=== PATIENT | female | born 1995 | race Caucasian/White ===

== ENCOUNTER 2022-10-15 16:47 | Emergency (ER) | payer OTHER ==
[2022-10-15] MEDS ORDERED: Ondansetron ODT 4 MG TAB ONE (18:33)
[2022-10-15 18:42] LABS: #Basophils 0.1 thou/uL (0.0-0.2); #Eosinphils 0.1 thou/uL (0.0-0.7); #Lymphocytes 1.4 thou/uL (1.20-3.40); #Monocytes 0.3 thou/uL (0.11-0.59); #Neutrophils 7.8 thou/uL (1.40-6.50); %Basophils 0.7 % (0.0-1.0); %Eosinophils 0.8 % (0.0-10.0); %Lymphocytes 14.8 % (21.0-51.0); %Monocytes 3.1 % (0.0-10.0); %Neutrophils 80.6 % (42.0-75.0); Hemoglobin 14.4 g/dL (12.0-16.0); Mean Corpuscular Hemoglobin 27.4 pg (27.0-31.0); Mean Corpuscular Volume 85.8 fl (78.0-98.0); Platelet Count 288 10x3/uL (130-400); RBC Distribution Width 12.3 % (11.5-14.5); Red Blood Cell (RBC) Count 5.24 mill/uL (4.20-5.40); White Blood Cell (WBC) Count 9.6 10x3/uL (4.8-10.8)
[2022-10-15 18:53] LABS: BHCG - Serum Negative (NEGATIVE); Pregs Control Background? CLEAR/WHITE (CLR/WHITE); Pregs Control Bar Appear? YES (CONTROL BAR)
[2022-10-15 18:59] LABS: ALT (SGPT) 32 U/L (8-55); AST (SGOT) 20 U/L (5-34); Albumin 4.1 g/dL (3.5-5.0); Alkaline Phosphatase 82 U/L (40-110); Anion Gap 13 mmol/L (10-20); BUN (Urea Nitrogen) 11 mg/dL (7.0-18.7); Bilirubin, Total 0.5 mg/dL (0.2-1.2); Calc. Creatinine Clearance 0 mL/min (70-130); Calcium 9.1 mg/dL (7.8-10.44); Carbon Dioxide 22 mmol/L (22-29); Chloride 109 mmol/L (98-107); Estimated GFR 102; Globulin 2.9 g/dL (2.4-3.5); Glucose 102 mg/dL (70-105); Lipase 15 U/L (8-78); Magnesium 1.8 mg/dL (1.6-2.6); Sodium 140 mmol/L (136-145)
== END 2022-10-15 19:23 | disposition home or self-care (01) ==
LOC: MADERS 16:47
DX: A08.4 Viral intestinal infection, unspecified (principal)
CPT/HCPCS: 36415; 80053; 83690; 83735; 84703; 85025; 99284; Q0162

== ENCOUNTER 2023-02-12 01:00 | Emergency (ER) | payer OTHER, SELFPAY ==
[2023-02-12] MEDS ORDERED: Prochlorperazine 10 MG/2 ML VIAL ONE (01:59)
[2023-02-12] MEDS ORDERED: Morphine 4 MG/ML VIAL ONE ×2 (02:00→03:38)
[2023-02-12] MEDS ORDERED: Morphine 2 MG/ML VIAL ONE (02:00)
[2023-02-12 02:27] LABS: #Basophils 0.1 thou/uL (0.0-0.2); #Eosinphils 0.1 thou/uL (0.0-0.7); #Lymphocytes 4.2 thou/uL (1.20-3.40); #Monocytes 0.6 thou/uL (0.11-0.59); %Basophils 0.8 % (0.0-1.0); %Eosinophils 0.6 % (0.0-10.0); %Neutrophils 64.7 % (42.0-75.0); Hematocrit 47.2 % (36.0-47.0); Hemoglobin 15.3 g/dL (12.0-16.0); Mean Corpuscular HGB CONC 32.4 g/dL (32.0-36.0); Mean Corpuscular Hemoglobin 27.8 pg (27.0-31.0); Mean Corpuscular Volume 85.8 fl (78.0-98.0); Mean Platelet Volume 9.5 fL (7.4-10.4); Platelet Count 332 10x3/uL (130-400)
[2023-02-12 02:44] LABS: Bacteria/HPF 1+ HPF (None Seen); Bilirubin Negative (Negative); Blood, Urine Negative (Negative); CAUTI Indications for Culture Pelvic or flank pain; Clarity Clear (Clear); Glucose, Urine (Dipstick) Negative (Negative); Ketone, Urine Negative (Negative); Leukocyte Negative (Negative); Nitrite Negative (Negative); Pregnancy Test - Urine (BHCG) Negative (Negative); Pregu Control Background? CLEAR/WHITE (CLR/WHITE); Pregu Control Bar Appear? YES (CONTROL BAR); Protein, Urine (Dipstick) Negative (Neg-Trace); RBC/HPF None Seen HPF (0-3); Specific Gravity 1.015 (1.002-1.036); Specific Gravity, Urine 1.015 (1.005-1.030); Squamous Epithelial 0-3 HPF (0-3); Urobilinogen 0.2 mg/dL (Less than 2); WBC/HPF 0-3 HPF (0-3)
[2023-02-12 02:45] LABS: Urine Culture Reflex No No
[2023-02-12 02:48] LABS: ALT (SGPT) 30 U/L (8-55); AST (SGOT) 21 U/L (5-34); Albumin 4.2 g/dL (3.5-5.0); Alkaline Phosphatase 73 U/L (40-110); Anion Gap 19 mmol/L (10-20); BUN (Urea Nitrogen) 9 mg/dL (7.0-18.7); Bilirubin, Total 0.4 mg/dL (0.2-1.2); Calc. Creatinine Clearance 0 mL/min (70-130); Calcium 9.5 mg/dL (7.8-10.44); Carbon Dioxide 16 mmol/L (22-29); Chloride 106 mmol/L (98-107); Estimated GFR 99; Globulin 3.6 g/dL (2.4-3.5); Glucose 120 mg/dL (70-105); Lipase 15 U/L (8-78); Potassium 4.5 mmol/L (3.5-5.1); Protein, Total 7.8 g/dL (6.0-8.3); Sodium 136 mmol/L (136-145)
[2023-02-12 05:04] LABS: Lactic Acid 0.8 mmol/L (0.5-2.2)
[2023-02-12] MEDS ORDERED: Sodium Chloride 0.9% 1,000 ML BAG ONE (07:33)
== END 2023-02-12 07:29 | disposition short-term general hospital (02) ==
LOC: MADERS 01:00
DX: K80.50 Calculus of bile duct without cholangitis or cholecystitis without obstruction (principal)
CPT/HCPCS: 74177; 80053; 81001; 81025; 83605; 83690; 85025; 96365; 96375; 96376; J0780; J2270; J2272; J7050

== ENCOUNTER 2023-04-15 09:09 | Emergency (ER) | payer SELFPAY ==
[2023-04-15] MEDS ORDERED: Ondansetron ODT 4 MG TAB ONE (09:57)
[2023-04-15 10:23] LABS: SARS-CoV-2 E Target Negative; SARS-CoV-2 N2 Target Negative; SARS-CoV-2 NAA Rapid Test Not Detected (NotDetected); SARS-CoV-2 RdRP gene Negative
== END 2023-04-15 10:30 | disposition home or self-care (01) ==
LOC: MADERS 09:09
DX: J10.1 Influenza due to other identified influenza virus with other respiratory manifestations (principal)
CPT/HCPCS: 87804; 99283; Q0162; U0002

== ENCOUNTER 2024-04-06 15:12 | Emergency (ER) | payer OTHER | END 2024-04-06 16:15 | disposition home or self-care (01) | LOC: MADERS 15:12 | DX: R21 Rash and other nonspecific skin eruption (principal); K01.1 Impacted teeth | CPT/HCPCS: 99282 ==

== ENCOUNTER 2024-11-09 07:26 | Emergency (ER) | payer SELFPAY | END 2024-11-09 08:19 | disposition home or self-care (01) | LOC: MADERS 07:26 | DX: J02.9 Acute pharyngitis, unspecified (principal); J39.9 Disease of upper respiratory tract, unspecified | CPT/HCPCS: 87081; 87426; 87430; 99283 ==